=== PATIENT | female | born 1955 ===

== ENCOUNTER 2021-07-25 08:18 | Day surgery (SDC) | payer OTHER ==
[~2021-07-25 08:18] MED LIST: ATORVASTATIN CA20 MG PO; COZAAR50 MG PO; OMEGA PO; PROPRANOLOL HCL10 MG PO
[2021-07-25] MEDS ORDERED: MORGIDOX100 MG PO (13:55)
[2021-07-25] MEDS ORDERED: NAPR500T14 PO (13:55)
== END 2021-07-25 19:10 | disposition home or self-care (01) ==
LOC: CIR.AMB 08:18
PROVIDERS: ATTEND Obstetrics & Gynecology
DX: N84.1 Polyp of cervix uteri (principal); D25.0 Submucous leiomyoma of uterus